=== PATIENT | female | born 1985 | race Caucasian/White ===

== ENCOUNTER 2022-06-17 09:49 | Outpatient (CLI) | payer OTHER ==
--- NOTE | 2022-06-17 16:57 | MRI Report ---
PROCEDURE: ANKLE WO - LT INDICATIONS: LEFT ANKLE INJURY, CONTINUED PAIN AND SWELLING TECHNIQUE: Noncontrast sagittal T1 spin echo and T2 fast spin echo with fat saturation, axial proton density fas t spin echo and T2 fast spin echo with fat saturation, coronal T1 spin echo and T2 fast spin echo wit h fat saturation through the ankle/hindfoot. COMPARISON: None. FINDINGS: Image quality: Excellent. Bones and joints: No bone marrow contusions or fractures. No hindfoot coalitions. No osteochondral injuries of the talar dome. Moderate ankle joint effusion. Medial structures: The posterior tibialis, flexor digitorum longus, and flexor hallucis longus tendo ns are intact, and demonstrate a small amount of surrounding fluid. The posterior tibial neurovascul ar bundle appears normal within the tarsal tunnel, without extrinsic mass effect. The deep layer (an terior and posterior tibiotalar ligaments) and superficial layer (tibionavicular, tibiospring, and ti biocalcaneal ligaments) of the deltoid ligament appear normal. The spring ligament components (super omedial calcaneonavicular, medioplantar oblique calcaneonavicular, and inferoplantar longitudinal lig aments) are intact. Lateral structures: The anterior talofibular ligament is indistinct and demonstrates moderate surrou nding T2 signal elevation. The calcaneofibular, and posterior talofibular ligaments appear intact. M ore superiorly, the anterior and posterior tibiofibular ligaments appear normal, as is the intermalle olar ligament. The tibiofibular syndesmosis is normal in width at 2 mm or less. The peroneus longus and brevis tendons demonstrate normal location and a small amount of surrounding fluid. Adjacent bon y peroneal tubercle and retrotrochlear prominence are normal in size. The sinus tarsi demonstrates n ormal fatty signal, without edema, fibrosis, or cyst formation. Visualized sinus tarsi components (c ervical ligament, interosseous talocalcaneal ligament, roots of the inferior extensor retinaculum) ap pear normal. Anterior structures: The tibialis anterior, extensor hallucis longus, and extensor digitorum longus tendons appear intact. Posterior and plantar structures: Achilles tendon demonstrates mild internal T2 signal elevation at the calcaneal insertion site. Mild fat stranding and a small amount of fluid at the anterior aspect o f the calcaneal insertion of the Achilles. Moderate ill-defined T2 signal elevation within the pre-Ac hilles fat. Medial and lateral bands of the plantar fascia are of normal thickness. No abductor digi ti quinti muscle atrophy to suggest Husain neuropathy. IMPRESSION: 1. Peritendinitis and insertional tendinitis of the Achilles tendon. 2. Partial-thickness anterior talofibular ligament tear. 3. Ankle joint effusion. 4. Medial and lateral flexor tenosynovitis. Reviewed by: Kevin Magallon MD on 06/17/2022 4:56 PM PDT Approved by: Kevin Magallon MD on 06/17/2022 4:56 PM PDT Station ID: [id number]
== END 2022-06-17 09:50 | disposition home or self-care (01) ==
LOC: DI 09:49
PROVIDERS: ATTEND Student in an Organized Health Care Education/Training Program
DX: M76.62 Achilles tendinitis, left leg (principal); S93.492A Sprain of other ligament of left ankle, initial encounter; M25.472 Effusion, left ankle; M65.9 Synovitis and tenosynovitis, unspecified